=== PATIENT | female | born 1990 | race Caucasian/White ===

== ENCOUNTER 2016-06-15 08:03 | Emergency (ER) | payer OTHER | END 2016-06-15 09:05 | disposition home or self-care (01) | LOC: ER1 08:03 | DX: K04.7 Periapical abscess without sinus (principal); G89.29 Other chronic pain; M25.561 Pain in right knee; F17.200 Nicotine dependence, unspecified, uncomplicated; F32.9 Major depressive disorder, single episode, unspecified; Z79.899 Other long term (current) drug therapy | CPT/HCPCS: 99282 ==